=== PATIENT | male | born 1970 | race Caucasian/White ===

== ENCOUNTER 2019-12-12 12:20 | Outpatient (CLI) | payer BC, SELFPAY ==
--- NOTE | ~2019-12-12 | MR_ITS ---
EXAMINATION: MR cervical spine wo con EXAM DATE: 12/12/2019 15:04 INDICATION: Ataxia. TECHNIQUE: Multi-sequential, multiplanar MR images of the cervical spine were obtained without contra st. Axial T2, axial T2 MERGE sequence. Sagittal T1, T2, T2 fat saturation images also obtained. Th ere is no prior study for comparison. FINDINGS: There is moderate loss of the C6-7 disc height, mild to moderate at C5-6 and mild at C4-5. The vertebral bodies are aligned in the AP dimension. The spinal cord signal intensity and intrinsic morphology is normal. Cervicomedullary junction is normal in appearance. There are no suspicious mar row signal abnormalities. Paraspinal soft tissue is unremarkable. Level by level evaluation: C2-C3: Disc does not extend beyond the endplate margin. Uncovertebral joint arthropathy: None. Facet joint arthropathy: Mild right. Neural foraminal stenosis: No stenosis. Central canal stenosis: No stenosis. C3-C4: Disc does not extend beyond the endplate margin. Uncovertebral joint arthropathy: Mild bilateral. Facet joint arthropathy: Mild bilateral. Neural foraminal stenosis: No stenosis. Central canal stenosis: No stenosis. C4-C5: Disc does not extend beyond the endplate margin. Uncovertebral joint arthropathy: Mild left. Facet joint arthropathy: Mild bilateral. Neural foraminal stenosis: No stenosis. Central canal stenosis: No stenosis. C5-C6: There is a mild diffuse disc bulge asymmetric to the right. Uncovertebral joint arthropathy: Moderate right, mild left. Facet joint arthropathy: Mild bilateral. Neural foraminal stenosis: Moderate right, mild to moderate left. Central canal stenosis: Mild. C6-C7: There is a mild diffuse disc bulge. Uncovertebral joint arthropathy: Mild to moderate bilateral. Facet joint arthropathy: Mild bilateral. Neural foraminal stenosis: Moderate left, mild to moderate right. Central canal stenosis: Mild. C7-T1: Disc does not extend beyond the endplate margin. Uncovertebral joint arthropathy: None. Facet joint arthropathy: Mild to moderate right, mild left. Neural foraminal stenosis: Mild right. Central canal stenosis: No stenosis. IMPRESSION: 1. Moderate midcervical spondylosis. Reviewed, dictated and finalized at location A. [employer] PHYSICIST
--- NOTE | ~2019-12-12 | MR_ITS ---
EXAMINATION: MR thoracic spine wo con EXAM DATE: 12/12/2019 15:04 INDICATION: Ataxia. TECHNIQUE: Multi-sequential, multiplanar MR images of the thoracic spine were obtained without contra st. Sagittal T1, T2, T2 fat saturation, axial T2 weighted images reviewed. There is no prior study for comparison. FINDINGS: The spinal cord signal intensity and intrinsic morphology is normal. The vertebral bodies a re aligned in the AP dimension. There is mild mid and lower thoracic disc disease. The vertebral body and disc heights are otherwise well maintained. There is moderate left neural foraminal stenosis at T7-8. Otherwise the thoracic neural foramina and central canal widely patent. There are no suspicious marrow signal abnormalities. There is mild upper thoracic, mild to moderate mid and lower thoracic f acet arthropathy. IMPRESSION: T7-8 moderate left neural foraminal stenosis. Otherwise mild thoracic spondylosis. Elizabeth l cord signal. Reviewed, dictated and finalized at location A. IC [employer] IMPRESSION: T7-8 moderate left neural foraminal stenosis. Otherwise mild thora cic spondylosis. Normal cord signal.
--- NOTE | ~2019-12-12 | MR_ITS ---
EXAMINATION: MR brain/brain stem wo con DATE: 12/12/2019 15:04 INDICATION: Ataxia. TECHNIQUE: Magnetic resonance imaging (MRI) of the brain and brainstem was performed without intraven ous contrast. Sequences included sagittal and axial T1-weighted FSE, axial diffusion-weighted FS EPI, axial T2*-weighted GRE, axial T2-weighted FLAIR Propeller, and axial T2-weighted Propeller. Apparent diffusion coefficient (ADC) maps were created. COMPARISON: None. FINDINGS: There is no intracranial hemorrhage, acute infarction, or abnormal intracranial mass lesion . The ventricles are normal in size. There is mild mucosal thickening in left maxillary sinus. The or bits are normal. The mastoid air cells are normal. IMPRESSION: 1. Normal brain. Reviewed, dictated and finalized at location A. N PLANNER IMPRESSION: 1. Normal brain.
== END 2019-12-12 12:21 | disposition home or self-care (01) ==
PROVIDERS: Visit Provider Psychiatry & Neurology Neurology
DX: R27.0 Ataxia, unspecified (principal); M48.04 Spinal stenosis, thoracic region; M47.814 Spondylosis without myelopathy or radiculopathy, thoracic region; M47.812 Spondylosis without myelopathy or radiculopathy, cervical region
CPT/HCPCS: 70551; 72141; 72146

== ENCOUNTER 2020-01-08 10:05 | Outpatient (CLI) | payer BC, SELFPAY ==
--- NOTE | 2020-01-08 11:00 | NEURO_ITS ---
Patient Number: [id number] Impression: # Complains of gait dysfunction. # Normal nerve conduction study. # Normal needle/EMG exam. # Clinical correlation recommended. Nerve Conduction Studies Anti Sensory Summary Table Stim Site NR Peak (ms) P-T Amp (?V) Site1 Site2 Delta-P (ms) Dist (cm) Osbaldo (m/s) Left Sup Fibular Anti Sensory (Ant Lat Mall) 14 cm 3.8 7.8 14 cm Ant Lat Mall 3.8 16.0 42 Right Sup Fibular Anti Sensory (Ant Lat Mall) 14 cm 3.3 14.8 14 cm Ant Lat Mall 3.3 16.0 48 Left Sural Anti Sensory (Lat Mall) Calf 3.7 30.2 Calf Lat Mall 3.7 16.0 43 Right Sural Anti Sensory (Lat Mall) Calf 3.6 17.1 Calf Lat Mall 3.6 16.0 44 Motor Summary Table Stim Site NR Onset (ms) O-P Amp (mV) Site1 Site2 Delta-0 (ms) Dist (cm) Osbaldo (m/s) Left Peroneal Motor (Vastus Med) Ankle 4.5 5.0 Popit Ankle 9.3 43.0 46 Popit 13.8 2.8 Right Peroneal Motor (Vastus Med) Ankle 4.0 3.7 Popit Ankle 9.0 45.0 50 Popit 13.0 3.4 Left Tibial Motor (Abd Fierro Brev) Ankle 4.5 3.0 Knee Ankle 9.6 47.0 49 Knee 14.1 2.5 Right Tibial Motor (Abd Fierro Brev) Ankle 4.7 6.2 Knee Ankle 9.3 48.0 52 Knee 14.0 4.0 F Wave Studies NR F-Lat (ms) L-R F-Lat (ms) Left Peroneal (Mrkrs) (EDB) 53.59 0.27 Right Peroneal (Mrkrs) (EDB) 53.87 0.27 Left Tibial (Mrkrs) (Abd Hallucis) 54.69 0.15 Right Tibial (Mrkrs) (Abd Hallucis) 54.54 0.15 EMG Side Muscle Nerve Root Ins Act Fibs Amp Dur Recrt Comment Right AntTibialis Dp Br Fibular L4-5 Nml Nml Nml Nml Nml Right Gastroc Tibial S1-2 Nml Nml Nml Nml Nml Right Fibularis Long Sup Br Fibular L5-S1 Nml Nml Nml Nml Nml Right Flex Dig Long Tibial L5-S2 Nml Nml Nml Nml Nml Right Ext Dig Brev Dp Br Fibular L5, S1 Nml Nml Nml Nml Nml Left AntTibialis Dp Br Fibular L4-5 Nml Nml Nml Nml Nml Left Gastroc Tibial S1-2 Nml Nml Nml Nml Nml Left Fibularis Long Sup Br Fibular L5-S1 Nml Nml Nml Nml Nml Left Flex Dig Long Tibial L5-S2 Nml Nml Nml Nml Nml Left Ext Dig Brev Dp Br Fibular L5, S1 Nml Nml Nml Nml Nml Right QuadratusFem QuadFemoris L4-5, S1 Nml Nml Nml Nml Nml Left QuadratusFem QuadFemoris L4-5, S1 Nml Nml Nml Nml Nml MTDD
== END 2020-01-08 10:06 | disposition home or self-care (01) ==
PROVIDERS: Visit Provider Psychiatry & Neurology Neurology
DX: R27.0 Ataxia, unspecified (principal)
CPT/HCPCS: 95886; 95910